=== PATIENT | female | born 2000 | race African-American/Black ===

== ENCOUNTER 2022-04-12 19:29 | Emergency (ER) | payer OTHER, SELFPAY ==
[2022-04-12 19:36] VITALS: BP 112/67; PULSE 108; RESP 20; TEMP 37.7; O2SAT 100
--- NOTE | 2022-04-12 19:44 | ED.URI ---
HPI - URI/Sore Throat General Chief Complaint: Upper Respiratory Infection Stated Complaint: right side achey hard to breathe Time Seen by Provider: 04/12/22 19:45 History of Present Illness HPI Narrative: Patient presents with a 3 day history of fever nasal congestion cough runny nose body aches and joint aches. No shortness of breath no chest pain. Patient states she was exposed to influenza flu A through her workplace. Related Data Allergies Allergy/AdvReac Type Severity Reaction Status Date / Time No Known Allergies Allergy Verified 04/12/22 19:41 Review of Systems Review of Systems: CONSTITUTIONAL: Denies chills, or sweats. Reports fever and generalized body aches EYES: Denies visual changes, redness, or discharge. ENT: Denies otalgia. Reports nasal congestion runny nose and sore throat CARDIOVASCULAR: Denies chest pain, palpitations, or edema. RESPIRATORY: Denies dyspnea. Reports occasional cough GASTROINTESTINAL: Denies abdominal pain, nausea, vomiting, or diarrhea. GENITOURINARY: Denies dysuria or hematuria. SKIN: Denies rash or itching. MUSCULOSKELETAL: Denies back pain, joint pain, or myalgia. Reports generalized body aches NEUROLOGIC: Denies headache, numbness, or weakness. PSYCHIATRIC: Denies anxiety or depression. PMFSH Comments By past history At time of signature, agree with nursing past medical, surgical, social and family history. There is no relevant family history pertinent to the presenting complaint Exam Narrative: The patient is a well-developed, well-nourished in no acute distress. SKIN: Skin is warm and dry without erythema, swelling or exudate. There is good turgor. No tenting. HEAD: Atraumatic. Normocephalic. No temporal or scalp tenderness. EYES: Moist and bright. Sclera and conjunctivae normal. No discharge. PERRLA. Extraocular motions intact. Gross visual acuity intact. EARS: Pinna is normal shape and contour. Clear external auditory canals. TM pearly robles with good cone of light, no erythema or suppuration. Bilateral cerumen noted no gross hearing deficit. NOSE: pink, moist mucosa with good air movement. Clear rhinorrhea without nasal flaring. Septum midline. Mouth: moist mucous membranes. THROAT; mild erythema noted to posterior oropharynx with moderate postnasal drainage. Without exudate or ulceration.. Uvula midline. Normal movement of soft palate. NECK: Supple and nontender with full range of motion without discomfort. No meningeal signs. LUNGS: Equal and bilateral breath sounds without wheezes, rales or rhonchi. CHEST: The chest wall is without retractions or use of accessory muscles. HEART: Has a regular rate and rhythm without murmur, gallops, click or rub. ABDOMEN: Soft, nontender with positive active bowel sounds. No rebound tenderness. EXTREMITIES: Without cyanosis, clubbing or edema. Equal 2+ distal pulses and 2 second capillary refill noted. NEUROLOGIC: alert, active, . The patient moves all extremities with normal muscle strength. Normal muscle tone is noted. Normal coordination is noted. NO focal neurological findings noted. Course Course Level of Care: Express Care Visit Vital Signs Vital signs: Vital Signs Temperature 37.7 C H 04/12/22 19:36 Pulse Rate 108 H 04/12/22 19:36 Respiratory Rate 20 04/12/22 19:36 Blood Pressure 112/67 04/12/22 19:36 Pulse Oximetry 100 04/12/22 19:36 Oxygen Delivery Room Air 04/12/22 19:36 Temperature 37.7 C H 04/12/22 19:36 Pulse Rate 108 H 04/12/22 19:36 Respiratory Rate 20 04/12/22 19:36 Blood Pressure 112/67 04/12/22 19:36 Pulse Oximetry 100 04/12/22 19:36 Oxygen Delivery Room Air 04/12/22 19:36 MDM - URI/Sore Throat Differential Diagnosis Differential diagnosis: Likely upper respiratory infection, croup, sinusitis, viral infection, bronchitis, influenza and pharyngitis; Unlikely otitis media Discharge Plan Discharge Clinical Impression: Upper respiratory infection Patient Disposition: H
== END 2022-04-12 19:51 | disposition home or self-care (01) ==
PROVIDERS: Emergency Provider Nurse Practitioner Family
DX: J06.9 Acute upper respiratory infection, unspecified (principal)
CPT/HCPCS: 99211; G0463

== ENCOUNTER 2024-03-02 11:51 | Emergency (ER) | payer OTHER, SELFPAY ==
--- NOTE | ~2024-03-02 | XR_ITS ---
EXAMINATION: XR heel RT min 2V DATE: 03/02/2024 12:37 INDICATION: Right heel pain. TECHNIQUE: 2 views of right calcaneus were obtained. COMPARISON: None. FINDINGS: Alignment is normal. No fracture. Joint spaces are normal. There is an enthesophyte of post erior aspect of calcaneal tuberosity. IMPRESSION: 1. No fracture. Reviewed, dictated and finalized at location A. IMPRESSION: 1. No fracture.
[2024-03-02 12:04] VITALS: BP 107/83; PULSE 83; RESP 16; TEMP 37.3; O2SAT 100
--- NOTE | 2024-03-02 12:11 | ED.LOWEXIN ---
HPI - Extremity Injury (Lower) General Chief Complaint: Extremity Injury, Lower Stated Complaint: Right Ankle Injury Time Seen by Provider: 03/02/24 12:11 Source: patient Mode of arrival: ambulatory Limitations: no limitations History of Present Illness HPI Narrative: 24 yo F presents with pain to R heel. Was walking up the stairs and foot slipped off the step causing right heel to hit the step below it. Pt states it kind of twisted and came down hard. Pain worse when ambulatory. ROM and distal NV intact. all Systems reviewed and negative except as noted above. Related Data Home Medications Medication Instructions Recorded Confirmed No Home Medications 03/02/24 03/02/24 Allergies Allergy/AdvReac Type Severity Reaction Status Date / Time No Known Allergies Allergy Verified 03/02/24 12:20 Review of Systems Review of Systems: CONSTITUTIONAL: Denies fever, chills, or sweats. EYES: Denies visual changes, redness, or discharge. ENT: Denies rhinorrhea, congestion, sore throat, or otalgia. CARDIOVASCULAR: Denies chest pain, palpitations, or edema. RESPIRATORY: Denies cough or dyspnea. GASTROINTESTINAL: Denies abdominal pain, nausea, vomiting, or diarrhea. GENITOURINARY: Denies dysuria or hematuria. SKIN: Denies rash or itching. MUSCULOSKELETAL: Denies back pain, joint pain, or myalgia. reports pain right NEUROLOGIC: Denies headache, numbness, or weakness. PSYCHIATRIC: Denies anxiety or depression. All other systems reviewed are negative, except as documented in HPI. PMFSH Comments At time of signature, agree with nursing past medical, surgical, social and family history. There is no relevant family history pertinent to the presenting complaint. Exam Narrative: GENERAL: This is a well-nourished, well-developed patient, in no apparent distress. HEAD: normocephalic, atraumatic. EYES: PERRL. Sclera clear/white. Vision is grossly intact. EARS: External ears normal NOSE: External nose normal NECK: Neck supple, non-tender without lymphadenopathy, masses or thyromegaly. CARDIOVASCULAR: Regular rate and rhythm without murmurs, gallops, or rubs. RESPIRATORY: Clear to auscultation. Breath sounds equal bilaterally. No wheezes, rales, or rhonchi. SKIN: warm, Dry, intact with no suspicious lesions or rash, good texture and turgor. NEURO: awake, alert, and oriented to person, place and time. There were no obvious focal neurologic abnormalities. EXTREMITIES: No joint tenderness, effusion, or edema noted. tenderness on palpation of plantar aspect R heel and posterior heel to achilles tendon. ROM and distal NV intact. Course Course Level of Care: Express Care Visit Vital Signs Vital signs: Vital Signs Temperature 37.3 C 03/02/24 12:04 Pulse Rate 83 03/02/24 12:04 Respiratory Rate 16 03/02/24 12:04 Blood Pressure 107/83 03/02/24 12:04 Pulse Oximetry 100 03/02/24 12:04 Oxygen Delivery Room Air 03/02/24 12:04 Temperature 37.3 C 03/02/24 12:04 Pulse Rate 83 03/02/24 12:04 Respiratory Rate 16 03/02/24 12:04 Blood Pressure 107/83 03/02/24 12:04 Pulse Oximetry 100 03/02/24 12:04 Oxygen Delivery Room Air 03/02/24 12:04 reviewed MDM - Extremity Injury (Lower) Medical Records Medical records narrative: Patient is aware of diagnosis, understands and agrees to treatment plan. Anticipatory guidance given. Patient agrees to follow-up as directed and is aware of reasons to seek care at the emergency department. Portions of this record may have been created with voice recognition software discussed xray results with pt. neg for fracture. place in etta wrap. recommend follow up with PCP if pain not improving. Imaging Data My impression: Agree with radiologist Radiologist's impression: EXAMINATION: XR heel RT min 2V DATE: 03/02/2024 12:37 INDICATION: Right heel pain. TECHNIQUE: 2 views of right calcaneus were obtained. COMPARISON: None. FINDINGS: Alignment is normal. No fracture. Joint spaces are normal. There is an enthesophyte of posterior aspect of calcaneal tuberosity. IMPRESSION: 1. No fracture. Discharge Plan Discharge Clinical Impression: Contusion of left heel Patient Disposition: Home, Self-Care Condition: Stable Instructions: Contusion in Adults (ED) Additional Instructions: the x-ray of your left heel was negative for fracture. Take ibuprofen or Tylenol every 6-8 hours as needed for pain. Apply ice as needed for pain. Elevate when at rest. Follow-up with your primary care physician if pain is not improving. Prescriptions: No Action No Home Medications Follow-up/Referrals: PHYSICIAN,ENVIRONMENTAL PROPERTY ASSESSOR [Primary Care Provider] - Stand Alone Forms: Work/School Release IP Time of Disposition: 12:55
--- NOTE | 2024-03-02 12:38 | PC.NURSE ---
Pt declined ice for comfort.
== END 2024-03-02 13:05 | disposition home or self-care (01) ==
PROVIDERS: Emergency Provider Nurse Practitioner Family
DX: S90.31XA Contusion of right foot, initial encounter (principal); W22.09XA Striking against other stationary object, initial encounter
CPT/HCPCS: 73650; 99213; G0463